=== PATIENT | male | born 1995 | race American Indian/Alaskan Native ===

== ENCOUNTER 2018-06-12 11:31 | Emergency (ER) | payer BC ==
--- NOTE | 2018-06-12 13:41 | Emergency Department Report ---
ED Lower Extremity HPI - General Chief Complaint: Extremity Injury, Lower Stated Complaint: FOOT PAIN Time Seen by Provider: 06/12/18 13:28 Source: patient Mode of arrival: Ambulatory Limitations: No Limitations - History of Present Illness Initial Comments: Mr. 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 In 2014 he underwent ORIF for treatment of fifth metatarsal stress fracture in left foot. The surgery occurred in [place]. After running 6 miles on Tuesday he had mild to moderate sharp pain at the area of the old surgical incision. No other injuries. MD Complaint: foot injury -: Gradual, days(s) (3) Injury: Foot: Left Place: school Severity: moderate Worsens With: weight bearing Context: running - Related Data Allergies Allergy/AdvReac Type Severity Reaction Status Date / Time No Known Allergies Allergy Unverified 06/12/18 11:50 ED Review of Systems ROS: Stated complaint: FOOT PAIN Other details as noted in HPI Constitutional: denies: fever, malaise Neurological: denies: numbness, paresthesias ED Past Medical Hx - Past Medical History Previous Medical History?: No - Surgical History Additional Surgical History: left foot fx with pen - Social History Smoking Status: Never Smoker Substance Use Type: None ED Physical Exam - General Limitations: No Limitations General appearance: alert, in no apparent distress - Head Head exam: Present: atraumatic, normocephalic - Neck Neck exam: Present: normal inspection - Respiratory Respiratory exam: Absent: respiratory distress - Extremities Exam Extremities exam: Present: other (left foot: mild tenderness at lateral posterior region at foot, 3 cm surgical scar 2+ DP pulse no redness no swelling) - Neurological Exam Neurological exam: Present: alert, oriented X3 ED Course Vital Signs 06/12/18 11:45 Temperature 98 F Pulse Rate 53 L Respiratory 16 Rate Blood Pressure 120/60 O2 Sat by Pulse 100 Oximetry ED Lower Extremity MDM - Radiology Data Radiology results: report reviewed, image reviewed interpreted by me: No evidence of acute fracture, remodeling is noted per radiologist at the area of previous fracture - Medical Decision Making Mr. Mcgovern presents with foot pain at site of previous injury. No new fracture seen according to radiologist's. However in setting of previous fracture, Patient is at risk for a secondary stress fracture due to overuse and high intensitiy training. I recommended no weightbearing until completely pain- free. I strongly recommended evaluation by orthopedic surgeon. I offered crutches. However patient politely declined due to additional hospital charges. 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 Critical care attestation.: If time is entered above; I have spent that time in minutes in the direct care of this critically ill patient, excluding procedure time. ED Disposition Clinical Impression: Strain of foot, left, Personal history of (healed) stress fracture Disposition: DC- TO HOME OR SELFCARE Is pt being admited?: No Does the pt Need Aspirin: No Condition: Stable Instructions: Foot Sprain (ED) Referrals: DAVID MCDANIELS MD [Staff Physician] - 3-5 Days
--- NOTE | 2018-06-12 13:54 | XRay Report ---
LEFT FOOT, 3 views: History: Lateral foot pain. There is normal bone mineralization. A single orthopedic screw is identified within the fifth metatarsal securing a remodeling fracture of the fifth metatarsal. There is no evidence for acute fracture, bony spur destruction or bone lesion. The remaining bony structures and joint spaces are unremarkable. Small plantar spur is noted. IMPRESSION: No acute process. Internally fixated fracture of the fifth metatarsal which appears to be remodeling. Small plantar spur.
[2018-06-12 14:42] VITALS: BP 128/81
== END 2018-06-12 14:45 | disposition home or self-care (01) ==
LOC: ED 11:31
DX: M84.375A Stress fracture, left foot, initial encounter for fracture (principal); X50.0XXA Overexertion from strenuous movement or load, initial encounter; Y93.89 Activity, other specified; Y92.89 Other specified places as the place of occurrence of the external cause; Y99.8 Other external cause status
CPT/HCPCS: 99283